=== PATIENT | male | born 1990 | race Caucasian/White ===

== ENCOUNTER 2025-07-30 17:35 | Observation (INO) ==
[2025-07-30] MEDS ORDERED: IOPAMIDOL 100 ML BOTTLE IV ONE (17:36)
[2025-07-30] MEDS: PIPERACILLIN SODIUM/TAZOBACTAM 3.375 GM in DEXTROSE 5% IN WATER 50 ML IV ONE (19:04)
[2025-07-30 19:34] LABS: INR 1.0 (0.9-1.1); Prothrombin Time 14.7 sec (11.9-14.5)
[2025-07-30] MEDS: ONDANSETRON 4 MG/2 ML VIAL IV PRN (19:39)
[2025-07-30] MEDS: 0.9 % SODIUM CHLORIDE 1,000 ML IV SCH (20:00)
[2025-07-31 05:46] LABS: Basophils # (Auto) 0.04 K/mcL (0.00-0.30); Basophils % (Auto) 0.7 % (0.0-2.0); Eosinophils # (Auto) 0.08 K/mcL (0.00-0.70); Eosinophils % (Auto) 1.5 % (0.0-7.0); Hematocrit 44.3 % (40.1-51.0); Hemoglobin 14.5 g/dL (13.7-17.5); Lymphocytes # (Auto) 2.38 K/mcL (1.50-4.80); Lymphocytes % (Auto) 43.4 % (15.5-49.0); Mean Corpuscular HGB Conc 32.7 g/dL (31.0-36.0); Monocytes # (Auto) 0.55 K/mcL (0.10-0.90); Monocytes % (Auto) 10.0 % (1.0-12.0); Neutrophils % (Auto) 44.4 % (38.0-78.0); Platelet Count 175 K/mcL (140-440); RBC 4.79 M/mcL (4.63-6.08); WBC 5.5 K/mcL (4.5-11.0)
[2025-07-31] MEDS ORDERED: SUGAMMADEX SODIUM 200 MG/2 ML VIAL IV ONE ×2 (07:44→08:41)
[2025-07-31] MEDS ORDERED: fentaNYL 100 MCG/2 ML VIAL ONE (07:44)
[2025-07-31] MEDS ORDERED: MIDAZOLAM 2 MG/2 ML VIAL ONE (07:45)
[2025-07-31] MEDS ORDERED: PROPOFOL 200 MG/20 ML VIAL IV ONE (07:45)
[2025-07-31] MEDS ORDERED: DEXAMETHASONE 10 MG/ML VIAL ONE (07:48)
[2025-07-31] MEDS ORDERED: GLYCOPYRROLATE 0.2 MG/ML VIAL IV ONE (07:48)
[2025-07-31] MEDS ORDERED: ROCURONIUM 10 MG/ML ML IV ONE (07:48)
[2025-07-31] MEDS ORDERED: ONDANSETRON 4 MG/2 ML VIAL ONE (07:48)
[2025-07-31] MEDS ORDERED: LIDOCAINE 2% PF 5 ML VIAL ONE (07:48)
[2025-07-31] MEDS ORDERED: IPRATROPIUM/ALBUTEROL 3 ML AMPUL.NEB NEB PRN (08:22)
[2025-07-31] MEDS ORDERED: BENZOCAINE/MENTHOL 1 LOZENGE PO PRN (08:22)
[2025-07-31] MEDS ORDERED: MEPERIDINE 25 MG/ML VIAL IV PRN (08:22)
[2025-07-31] MEDS ORDERED: ONDANSETRON 4 MG/2 ML VIAL IV PRN ×2 (08:22→08:56)
[2025-07-31] MEDS ORDERED: fentaNYL 100 MCG/2 ML VIAL IV PRN (08:22)
[2025-07-31] MEDS ORDERED: HYDROmorphone 0.5 MG/0.5 ML SYRINGE ONE (08:24)
[2025-07-31] MEDS ORDERED: DEXMEDETOMIDINE HCL 200 MCG/2 ML VIAL ONE (08:27)
[2025-07-31] MEDS: BUPIVACAINE W/EPI 0.25% 50 ML VIAL IJ ONE (08:37)
[2025-07-31] MEDS: ACETAMINOPHEN 1,000 MG/100 ML BAG IV ONE (08:53)
[2025-07-31] MEDS: METHOCARBAMOL 1,000 MG/10 ML VIAL IV PRN (09:13)
[2025-07-31] MEDS: KETOROLAC 30 MG/ML VIAL IV PRN (09:14)
[2025-07-31] MEDS: 0.9 % SODIUM CHLORIDE 1,000 ML IV SCH (09:42)
[2025-07-31] MEDS ORDERED: FAMOTIDINE/PF 20 MG/2 ML VIAL IV ONE (09:49)
[2025-07-31] MEDS ORDERED: ePHEDrine 50 MG/5 ML SYRINGE (ANEST) IV ONE (09:50)
[2025-07-31] MEDS ORDERED: PHENYLephrine 1 MG/10 ML SYRINGE (ANEST) ONE (09:59)
== END 2025-07-31 14:40 | disposition home or self-care (01) ==
LOC: ED 17:35 → MEDSUR 19:52 → INTOOBSV 19:52
PROVIDERS: ADMIT Surgery; ATTEND Surgery
PROC: LAPAPPY (ICD-10-PCS; 2025-07-31 07:55)